=== PATIENT | female | born 1970 | race African-American/Black ===

== ENCOUNTER 2020-04-30 14:56 | Outpatient (CLI) | payer OTHER, SELFPAY ==
--- NOTE | ~2020-04-30 | US_ITS ---
EXAMINATION: US retroperitoneal comp EXAM DATE: 04/30/2020 15:36 INDICATION: Stage IV chronic kidney disease. TECHNIQUE: Multiple grayscale and Doppler images of the kidneys were obtained (by a technologist who performed the scan) and subsequently reviewed. There is no prior study for comparison. FINDINGS: Right kidney: There is normal contour and increased echogenicity. It measures 7.4 x 4.1 x 5.6 centim eters. There are no focal renal lesions identified. There is no hydronephrosis. Left kidney: There is normal contour and increased echogenicity. It measures 8.1 x 4.5 x 5.3 centime ters. There are no focal renal lesions identified. There is no hydronephrosis. Bladder unremarkable. IMPRESSION: 1. Echogenic kidneys, consistent with medical renal disease. 2. Mild atrophy. Reviewed, dictated and finalized at location B.
== END 2020-04-30 14:57 | disposition home or self-care (01) ==
DX: Z00.00 Encounter for general adult medical examination without abnormal findings (principal); N18.4 Chronic kidney disease, stage 4 (severe); R80.1 Persistent proteinuria, unspecified; N03.2 Chronic nephritic syndrome with diffuse membranous glomerulonephritis; I10 Essential (primary) hypertension; N25.81 Secondary hyperparathyroidism of renal origin; E55.9 Vitamin D deficiency, unspecified; N26.1 Atrophy of kidney (terminal)
CPT/HCPCS: 76770